=== PATIENT | male | born 1970 | race Caucasian/White ===

== ENCOUNTER 2016-12-31 17:45 | Emergency (ER) | payer MEDICAID ==
--- NOTE | 2016-12-31 19:00 | EDM.PDOC ---
ED HPI GENERAL MEDICAL PROBLEM - General Chief Complaint: General Stated Complaint: TOE INJURY Time Seen by Provider: 12/31/16 18:30 Source of Information: Reports: Patient History Limitations: Reports: No Limitations - History of Present Illness INITIAL COMMENTS - FREE TEXT/NARRATIVE: According to patient he accidentally stubbed his left foot pinky finger into the edge of the bed rail today and c/o pain and swelling of the pinky toe. hurts to walk and even touch the pinky toe. No other injuries. Pain resolves when he is resting. No other complaints. Onset: Today - Related Data Allergies Allergy/AdvReac Type Severity Reaction Status Date / Time No Known Allergies Allergy Verified 12/04/13 16:22 Home Meds: Home Meds Diazepam [Diazepam] 2 mg PO DAILY 12/04/13 [History] Ranitidine [Zantac] 150 mg PO BID 12/04/13 [History] oxyCODONE HCl/Acetaminophen [oxyCODONE-Acetaminophen 5-325] 1 tab PO Q4H PRN 03/10 [History] DULoxetine [Cymbalta] 1 tab PO DAILY 12/31/16 [History] Past Medical History HEENT History: Reports: None Cardiovascular History: Reports: None Respiratory History: Reports: None Musculoskeletal History: Reports: Back Pain, Chronic Endocrine/Metabolic History: Reports: None Oncologic (Cancer) History: Reports: None - Past Surgical History Other HEENT Surgeries/Procedures: wears glasses Other GI Surgeries/Procedures: chronic low back history: no bowel or bladder concerns related to LBP Neurological Surgical History: Reports: C-Spine ED ROS GENERAL - Review of Systems Review Of Systems: See Below Constitutional: Denies: Fever, Chills HEENT: Denies: Rhinitis, Sinus Problem, Throat Pain, Throat Swelling Respiratory: Denies: Cough, Sputum Cardiovascular: Denies: Chest Pain, Syncope GI/Abdominal: Denies: Abdominal Pain, Nausea, Vomiting Musculoskeletal: Reports: Back Pain (chronic), Foot Pain. Denies: Joint Pain, Joint Swelling, Muscle Pain, Muscle Stiffness ED EXAM, GENERAL - Physical Exam Exam: See Below Exam Limited By: No Limitations General Appearance: Alert, WD/WN, Mild Distress Eye Exam: Bilateral Eye: EOMI, PERRL Ears: Normal External Exam, Normal Canal, Hearing Grossly Normal, Normal TMs Ear Exam: Bilateral Ear: Auricle Normal, Canal Normal, TM normal Nose: Normal Inspection, Normal Mucosa, No Blood Head: Atraumatic, Normocephalic Neck: Normal Inspection, Supple, Non-Tender, Full Range of Motion Extremities: Other (Left 5th toe: there is swelling of the toe. no obvious deformity. pt can move the toe but very painful. tender to touch and on PROM. ) Course - Vital Signs Text/Narrative:: Xray right 5th toe does show mildly displaced fracture of the proximal phalanx of the toe. Pt was reassured thta he does have 5th toe fracture. Did try tapping the toes, pt did not tolerate it. Hence walking psot op shoes was applied. Pt was able to walk without discomfort. I have advised patient to use the shoe all the time for 2 wks. the pain should improve in 2 wks. Advised to followup in clinic in 2 wks. Cold compresses every 2-3 hrs for 24 hrs. He does have pain meds that he takes for back pain. Hence advised to take it as needed. - Orders/Labs/Meds Orders: Active Orders 24 hr Category Date Time Status Foot Comp Min 3V Lt [CR] Stat Exams 12/31/16 Taken Departure - Departure Time of Disposition: 18:45 Disposition: Home, Self-Care 01 Condition: Fair Clinical Impression: Toe fracture, left - Discharge Information Forms: ED Department Discharge - Problem List & Annotations (1) Toe fracture, left SNOMED Code(s): 54628708 Code(s): S92.912A - UNSP FRACTURE OF LEFT TOE(S), INIT FOR CLOS FX Status: Acute Current Visit: Yes - Problem List Review Problem List Initiated/Reviewed/Updated: Yes - My Orders Last 24 Hours: My Active Orders 12/31/16 Foot Comp Min 3V Lt [CR] Stat - Assessment/Plan Last 24 Hours: My Active Orders 12/31/16 Foot Comp Min 3V Lt [CR] Stat Assessment:: Left 5th toe fracture Plan: Xray right 5th toe does show mildly displaced fracture of the proximal phalanx of the toe. Pt was reassured thta he does have 5th toe fracture. Did try tapping the toes, pt did not tolerate it. Hence walking psot op shoes was applied. Pt was able to walk without discomfort. I have advised patient to use the shoe all the time for 2 wks. the pain should improve in 2 wks. Advised to followup in clinic in 2 wks. Cold compresses every 2-3 hrs for 24 hrs. He does have pain meds that he takes for back pain. Hence advised to take it as needed.
--- NOTE | 2016-12-31 19:32 | CR ---
DATE OF SERVICE: 12/31/2016 CLINICAL DATA: INJURY. LEFT FOOT There is a mildly displaced oblique fracture through the mid diaphysis of the proximal phalanx of the fifth toe. No other acute abnormalities. IMPRESSION: Fracture fifth toe. [id number] [facility]
== END 2016-12-31 18:40 | disposition home or self-care (01) ==
LOC: LB.ED 17:45
DX: S92.512A Displaced fracture of proximal phalanx of left lesser toe(s), initial encounter for closed fracture (principal); W22.03XA Walked into furniture, initial encounter; Z79.899 Other long term (current) drug therapy
CPT/HCPCS: 73630-LT; 99283